=== PATIENT | female | born 1960 | race Caucasian/White ===

== ENCOUNTER 2018-11-10 08:57 | Outpatient (REF) | payer MEDICARE, SELFPAY ==
[2018-11-10 22:36] LABS: HCT 43.3 % (36.0-46.0); HGB 14.4 g/dL (12.0-15.5); Mean Corp. HGB Concentration 33.3 g/dL (32.0-36.0); Mean Corpuscular Hemoglobin 29.9 pg (27.0-33.0); Mean Platelet Volume 10.5 fL (8.0-11.0); Platelet Count 240 x1000/uL (130-400); RBC 4.81 m/cumm (4.00-5.20); RBC Distribution Width 13.4 % (11.7-14.6); White Blood Cell Count 6.51 k/cumm (4.4-10.8)
[2018-11-10 22:52] LABS: ALT 21 U/L (12-78); AST 15 U/L (15-37); Albumin 3.8 g/dL (3.4-5.0); Alkaline Phosphatase 100 U/L (46-116); Anion Gap 6.3 mmol/L (3-11); BUN 13 mg/dL (7-18); Bilirubin, Total 0.4 mg/dL (0.2-1.0); CO2 31.7 mmol/L (21.0-32.0); CREATININE 0.65 mg/dL (0.55-1.02); Calcium 9.2 mg/dL (8.5-10.1); Chloride 104 mmol/L (98-107); Glucose 104 mg/dL (70-100); Potassium 4.6 mmol/L (3.5-5.1); Sodium 142 mmol/L (136-145); TSH 9.59 uIU/mL (0.358-3.74); Total Protein 6.8 g/dL (6.4-8.2)
== END 2018-11-10 09:17 ==
LOC: NCHCN 08:57
PROVIDERS: PCP Nurse Practitioner Family; Visit Provider Nurse Practitioner Family
DX: F41.8 Other specified anxiety disorders (principal); F51.09 Other insomnia not due to a substance or known physiological condition
CPT/HCPCS: 80053; 85027; 84443

== ENCOUNTER 2019-02-01 15:33 | Outpatient (REF) | payer MEDICARE, SELFPAY ==
[2019-02-01 22:28] LABS: TSH (W/Ref FT4) 0.03 uIU/mL (0.358-3.74)
[2019-02-01 22:51] LABS: FREE T4 2.08 ng/dL (0.76-1.46)
== END 2019-02-01 15:53 ==
LOC: NCHCN 15:33
PROVIDERS: PCP Nurse Practitioner Family; Visit Provider Nurse Practitioner Family
DX: E03.9 Hypothyroidism, unspecified (principal)
CPT/HCPCS: 84439; 84443

== ENCOUNTER 2019-05-03 14:04 | Outpatient (REF) | payer MEDICARE, SELFPAY ==
[2019-05-03 22:28] LABS: TSH (W/Ref FT4) 0.16 uIU/mL (0.358-3.74)
[2019-05-03 22:47] LABS: FREE T4 1.28 ng/dL (0.76-1.46)
== END 2019-05-03 14:24 ==
LOC: NCHCN 14:04
PROVIDERS: PCP Nurse Practitioner Family; Visit Provider Nurse Practitioner Family
DX: E03.9 Hypothyroidism, unspecified (principal)
CPT/HCPCS: 84439; 84443

== ENCOUNTER 2019-06-16 20:40 | Outpatient (REF) | payer MEDICARE, SELFPAY | END 2019-06-16 21:00 | LOC: NCHCN 20:40 | PROVIDERS: PCP Nurse Practitioner Family; Visit Provider Nurse Practitioner Family | DX: R82.90 Unspecified abnormal findings in urine (principal) | CPT/HCPCS: 87077; 87086; 87186 ==

== ENCOUNTER 2019-08-23 11:49 | Outpatient (REF) | payer MEDICARE, SELFPAY ==
[2019-08-23 21:54] LABS: HGB 15.1 g/dL (12.0-15.5); Mean Corp. HGB Concentration 33.6 g/dL (32.0-36.0); Mean Corpuscular Hemoglobin 29.6 pg (27.0-33.0); Mean Corpuscular Volume 88.2 fL (80-95); Mean Platelet Volume 10.7 fL (8.0-11.0); Platelet Count 240 x1000/uL (130-400); RBC Distribution Width 13.4 % (11.7-14.6); White Blood Cell Count 5.93 k/cumm (4.4-10.8)
[2019-08-23 22:08] LABS: ALT 22 U/L (14-59); AST 13 U/L (15-37); Alkaline Phosphatase 101 U/L (46-116); Anion Gap 8.8 mmol/L (3-11); BUN 10 mg/dL (7-18); Bilirubin, Total 0.5 mg/dL (0.2-1.0); CO2 27.2 mmol/L (21.0-32.0); CREATININE 0.64 mg/dL (0.55-1.02); Calcium 9.1 mg/dL (8.5-10.1); Chloride 105 mmol/L (98-107); Glucose 99 mg/dL (70-100); Potassium 4.3 mmol/L (3.5-5.1); Sodium 141 mmol/L (136-145); TSH 0.18 uIU/mL (0.36-3.74); Total Protein 7.1 g/dL (6.4-8.2)
[2019-08-24 13:23] LABS: FREE T4 1.35 ng/dL (0.76-1.46)
[2019-08-24 14:27] LABS: Calculated LDL 116 mg/dL; Cholesterol 186 mg/dL (50-200); HDL Cholesterol 51 mg/dL (40-60); Triglyceride 96 mg/dL (30-150)
== END 2019-08-23 12:09 ==
LOC: NCHCN 11:49
PROVIDERS: PCP Nurse Practitioner Family; Visit Provider Nurse Practitioner Family
DX: F33.9 Major depressive disorder, recurrent, unspecified (principal); F41.1 Generalized anxiety disorder; F51.09 Other insomnia not due to a substance or known physiological condition; E03.9 Hypothyroidism, unspecified; R53.83 Other fatigue; G43.909 Migraine, unspecified, not intractable, without status migrainosus; Z13.6 Encounter for screening for cardiovascular disorders
CPT/HCPCS: 80053; 80061; 85027; 84439; 84443

== ENCOUNTER 2019-11-25 20:49 | Outpatient (REF) | payer MEDICARE, SELFPAY ==
[2019-11-25 21:08] LABS: TSH 7.69 uIU/mL (0.36-3.74)
== END 2019-11-25 21:09 ==
LOC: NCHCN 20:49
PROVIDERS: PCP Nurse Practitioner Family; Visit Provider Nurse Practitioner Family
DX: E03.9 Hypothyroidism, unspecified (principal)
CPT/HCPCS: 84443

== ENCOUNTER 2020-03-15 12:11 | Outpatient (REF) | payer MEDICARE, SELFPAY ==
[2020-03-15 20:17] LABS: TSH 1.26 uIU/mL (0.36-3.74)
== END 2020-03-15 12:31 ==
LOC: NCHCN 12:11
PROVIDERS: PCP Nurse Practitioner Family; Visit Provider Nurse Practitioner Family
DX: E03.9 Hypothyroidism, unspecified (principal)
CPT/HCPCS: 84443

== ENCOUNTER 2020-06-27 10:19 | Outpatient (REF) | payer MEDICARE, SELFPAY | END 2020-06-27 10:39 | LOC: NCHCN 10:19 | PROVIDERS: PCP Nurse Practitioner Family; Visit Provider Nurse Practitioner Family | DX: R31.9 Hematuria, unspecified (principal) | CPT/HCPCS: 87086 ==

== ENCOUNTER 2021-03-18 11:14 | Outpatient (REF) | payer MEDICARE, SELFPAY ==
[2021-03-18 14:02] LABS: Anion Gap 7.2 mmol/L (3-11); BUN 10 mg/dL (7-18); CO2 29.8 mmol/L (21.0-32.0); CREATININE 0.7 mg/dL (0.55-1.02); Calcium 8.7 mg/dL (8.5-10.1); Chloride 107 mmol/L (98-107); Glucose 99 mg/dL (74-106); Magnesium 1.9 mg/dL (1.8-2.4); Sodium 144 mmol/L (136-145); Vitamin B12 364 pg/mL (193-986)
== END 2021-03-18 11:15 | disposition home or self-care (01) ==
LOC: NCHCN 11:14
PROVIDERS: PCP Nurse Practitioner Family; Visit Provider Nurse Practitioner Family
DX: E03.9 Hypothyroidism, unspecified (principal); R00.2 Palpitations; F33.9 Major depressive disorder, recurrent, unspecified; G89.4 Chronic pain syndrome; G90.50 Complex regional pain syndrome I, unspecified; K22.70 Barrett's esophagus without dysplasia; Z79.899 Other long term (current) drug therapy
CPT/HCPCS: 80048; 82607; 83735; 84443

== ENCOUNTER 2021-07-04 13:18 | Outpatient (REF) | payer MEDICARE, SELFPAY ==
[2021-07-04 20:46] LABS: TSH 0.65 uIU/mL (0.36-3.74)
[2021-07-04 20:58] LABS: Vitamin D 25 Total 18.2 ng/mL (30-100)
== END 2021-07-04 13:19 | disposition home or self-care (01) ==
LOC: NCHCN 13:18
PROVIDERS: PCP Nurse Practitioner Family; Visit Provider Nurse Practitioner Family
DX: E03.9 Hypothyroidism, unspecified (principal); E55.9 Vitamin D deficiency, unspecified
CPT/HCPCS: 82306; 84443

== ENCOUNTER 2021-10-11 14:59 | Outpatient (REF) | payer MEDICARE, SELFPAY ==
[2021-10-14 02:51] LABS: Vitamin D 25 Total 48.5 ng/mL (30-100)
== END 2021-10-11 15:00 | disposition home or self-care (01) ==
LOC: NCHCN 14:59
PROVIDERS: PCP Nurse Practitioner Family; Visit Provider Nurse Practitioner Family
DX: E55.9 Vitamin D deficiency, unspecified (principal)
CPT/HCPCS: 82306

== ENCOUNTER 2022-04-28 14:20 | Outpatient (REF) | payer MEDICARE, SELFPAY ==
--- NOTE | 2022-04-28 13:50 | PAPFT_PTH ---
PATIENT: Jenn Kearns LOC: [facility]#:[id number] AGE/SX: 61/F ROOM: RE04/28/[address]: Tiffanie Friedman : 1960 BED: DIS: 04/28/2022 SPEC #: [id number] RECD: 04/29/22 12:46 STATUS: KIARAOswaldo RELincoln #: [id number] FELICIA: 04/28/22 13:[address]: Tiffanie Cheng DEPT: [facility] Cytology RECD BY: Rand Alatorre ENTERED: 04/29/22 12:47 SP TYPE: PAPFT OTHR DR: Carri Virk Tissues: 1 - CX/ENDOCX FOR PAP SMEARS Procedures: PAP THIN PREP/[facility] Screening HPV DNA PROBE Comments: [id number]
== END 2022-04-28 14:21 | disposition home or self-care (01) ==
LOC: NCHCN 14:20
PROVIDERS: PCP Nurse Practitioner Family; Visit Provider Nurse Practitioner Family
DX: Z12.4 Encounter for screening for malignant neoplasm of cervix (principal); Z11.51 Encounter for screening for human papillomavirus (HPV); Z01.419 Encounter for gynecological examination (general) (routine) without abnormal findings
CPT/HCPCS: 88142; 87624

== ENCOUNTER 2022-04-28 15:20 | Outpatient (REF) | payer MEDICARE, SELFPAY ==
[2022-04-28 21:08] LABS: HCT 41.9 % (36.0-46.0); HGB 13.8 g/dL (11.2-15.7); MCH 29.4 pg (27.0-33.0); MCHC 32.9 % (32.0-36.0); MCV 89 fL (80-95); Platelet Count 240 10^3/uL (130-400); RBC 4.69 10^6/uL (3.93-5.22); RDW 13.4 % (11.7-14.6); RDW-SD 43.8 fL; WBC 6.49 10^3/uL (4.4-10.8)
[2022-04-28 21:46] LABS: ALT 24 U/L (14-59); AST 12 U/L (15-37); Alkaline Phosphatase 100 U/L (46-116); Anion Gap 9.7 mmol/L (3-11); BUN 14 mg/dL (7-18); Bilirubin, Total 0.6 mg/dL (0.2-1.0); CO2 27.3 mmol/L (21.0-32.0); CREATININE 0.7 mg/dL (0.55-1.02); Calcium 8.7 mg/dL (8.5-10.1); Chloride 105 mmol/L (98-107); Glucose 101 mg/dL (74-106); Magnesium 1.9 mg/dL (1.8-2.4); Potassium 4.5 mmol/L (3.5-5.1); Sodium 142 mmol/L (136-145); TSH 2.46 uIU/mL (0.36-3.74); Vitamin B12 321 pg/mL (193-986)
== END 2022-04-28 15:21 | disposition home or self-care (01) ==
LOC: NCHCN 15:20
PROVIDERS: PCP Nurse Practitioner Family; Visit Provider Nurse Practitioner Family
DX: E03.9 Hypothyroidism, unspecified (principal); E66.9 Obesity, unspecified; R41.9 Unspecified symptoms and signs involving cognitive functions and awareness
CPT/HCPCS: 80053; 85027; 82607; 83735; 84443

== ENCOUNTER 2023-05-06 10:14 | Outpatient (REF) | payer MEDICARE, SELFPAY | END 2023-05-06 10:15 | disposition home or self-care (01) | LOC: NCHCN 10:14 | PROVIDERS: PCP Nurse Practitioner Family; Visit Provider Family Medicine | DX: R35.0 Frequency of micturition (principal) | CPT/HCPCS: 87086 ==

== ENCOUNTER 2023-06-12 09:25 | Outpatient (REF) | payer MEDICARE, SELFPAY ==
[2023-06-12 15:03] LABS: TSH 1.04 uIU/mL (0.36-3.74)
== END 2023-06-12 09:26 | disposition home or self-care (01) ==
LOC: NCHCN 09:25
PROVIDERS: PCP Nurse Practitioner Family; Visit Provider Nurse Practitioner Family
DX: E03.9 Hypothyroidism, unspecified (principal); R53.83 Other fatigue
CPT/HCPCS: 84443

== ENCOUNTER 2024-06-14 10:23 | Outpatient (REF) | payer MEDICARE, SELFPAY ==
[2024-06-14 15:53] LABS: Anion Gap 7.1 mmol/L (3-11); BUN 12 mg/dL (7-18); CO2 28.9 mmol/L (21.0-32.0); CREATININE 0.6 mg/dL (0.55-1.02); Calcium 8.8 mg/dL (8.5-10.1); Calculated LDL 115 mg/dL (<100); Chloride 106 mmol/L (98-107); Cholesterol 183 mg/dL (<200); Glucose 102 mg/dL (74-106); HDL Cholesterol 50 mg/dL (40-60); Potassium 4.2 mmol/L (3.5-5.1); Sodium 142 mmol/L (136-145); Triglyceride 90 mg/dL (<150)
== END 2024-06-14 10:24 | disposition home or self-care (01) ==
LOC: NCHCN 10:23
PROVIDERS: PCP Nurse Practitioner Family; Visit Provider Nurse Practitioner Family
DX: E03.9 Hypothyroidism, unspecified (principal); Z51.81 Encounter for therapeutic drug level monitoring; Z79.899 Other long term (current) drug therapy
CPT/HCPCS: 80048; 80061; 84443

== ENCOUNTER 2025-02-23 12:46 | Outpatient (REF) | payer MEDICARE, SELFPAY ==
[2025-02-23 15:10] LABS: HCT 45.3 % (36.0-46.0); MCH 29.6 pg (27.0-33.0); MCHC 33.1 % (32.0-36.0); MCV 89 fL (80-95); Platelet Count 261 10^3/uL (130-400); RBC 5.07 10^6/uL (3.93-5.22); RDW 13.2 % (11.7-14.6); RDW-SD 43.1 fL
[2025-02-23 16:20] LABS: ALT 21 U/L (14-59); AST 19 U/L (15-37); Alkaline Phosphatase 108 U/L (46-116); Anion Gap 9.9 mmol/L (3-11); BUN 11 mg/dL (7-18); Bilirubin, Total 0.6 mg/dL (0.2-1.0); CO2 27.1 mmol/L (21.0-32.0); CREATININE 0.8 mg/dL (0.55-1.02); Calcium 9.3 mg/dL (8.5-10.1); Calculated LDL 132 mg/dL (<100); Chloride 105 mmol/L (98-107); Cholesterol 198 mg/dL (<200); Estimated GFR 82.23 (mL/min/1.73m2); Glucose 95 mg/dL (74-106); HDL Cholesterol 56 mg/dL (>or=50); Potassium 4.6 mmol/L (3.5-5.1); Sodium 142 mmol/L (136-145); TSH 7.28 uIU/mL (0.36-3.74); Total Protein 7.6 g/dL (6.4-8.2); Triglyceride 52 mg/dL (<150)
[2025-02-23 17:10] LABS: Hemoglobin A1C 5.3 % (<5.7)
== END 2025-02-23 12:47 | disposition home or self-care (01) ==
LOC: NCHCN 12:46
PROVIDERS: PCP Nurse Practitioner Family; Visit Provider Nurse Practitioner Family
DX: E66.9 Obesity, unspecified (principal); Z13.1 Encounter for screening for diabetes mellitus; E03.9 Hypothyroidism, unspecified; Z13.220 Encounter for screening for lipoid disorders
CPT/HCPCS: 80053; 80061; 85027; 83036; 84443

== ENCOUNTER 2025-05-29 18:48 | Outpatient (REF) | payer MEDICARE, SELFPAY ==
[2025-05-29 15:09] LABS: TSH 1.91 uIU/mL (0.36-3.74)
== END 2025-05-29 18:49 | disposition home or self-care (01) ==
LOC: NCHCN 18:48
PROVIDERS: PCP Nurse Practitioner Family; Visit Provider Nurse Practitioner Family
DX: E03.9 Hypothyroidism, unspecified (principal)
CPT/HCPCS: 84443